=== PATIENT | male | born 1985 | race American Indian/Alaskan Native ===

== ENCOUNTER 2021-08-28 11:51 | Emergency (ER) | payer SELFPAY ==
--- NOTE | 2021-08-28 13:38 | Emergency Department Report ---
Abscess Boil HPI - HPI Chief Complaint: Skin/Abscess/Foreign Body Stated Complaint: CYST LOWER RT ADB/PELVIC Time Seen by Provider: 08/28/21 13:29 Duration: >1 Week Location: Other Severity: Moderate History: Yes Pain, No Fever, No Purulent Drainage, No Numbness, No Foreign Body, No Previous History, No Insect Bite HPI: Patient is a 36-year-old male who comes in with an abscess just at the top of his mons pubis. Denies fever or chills. Denies having had these before. Home Medications: Previous Rx's Medication Instructions Recorded Last Taken Type cephALEXin [Keflex] 500 mg PO Q12HR #20 cap 08/28/21 Unknown Rx Allergies/Adverse Reactions: Allergies Allergy/AdvReac Type Severity Reaction Status Date / Time No Known Allergies Allergy Verified 08/28/21 15:12 ED Review of Systems ROS: Stated complaint: CYST LOWER RT ADB/PELVIC Other details as noted in HPI Comment: All other systems reviewed and negative ED Past Medical Hx - Past Medical History Previous Medical History?: Yes Additional medical history: Cerebral palsy - Family History Family history: no significant - Social History Smoking Status: Never Smoker Substance Use Type: None - Medications Home Medications: Home Medications Medication Instructions Recorded Confirmed Last Taken Type cephALEXin [Keflex] 500 mg PO Q12HR #20 cap 08/28/21 Unknown Rx ED Abscess Boil Physical Exam - Exam General: Vital signs noted. No distress. Alert and acting appropriately. Size: 2 cm Exam: Yes Tenderness, Yes Normal Neurologic Exam, Yes Normal Circulation, No Fluctuance, No Surrounding Cellulites/Erythema, No Lymphangitis, No Crepitation, No Heart Murmur I & D Note - I & D Note I & D Note: Area anesthetized with 4 cc of lidocaine. Area cleaned and draped. 1 cm incision with excision of cyst wall. Purulent drainage obtained. Wound clean. Dressing applied ED Course Vital Signs 08/28/21 13:13 Temperature 97.6 F Pulse Rate 71 Respiratory 20 Rate Blood Pressure 129/76 [Right] O2 Sat by Pulse 99 Oximetry Critical care attestation.: If time is entered above; I have spent that time in minutes in the direct care of this critically ill patient, excluding procedure time. ED Medical Decision Making - Medical Decision Making Vital Signs 08/28/21 13:13 Temperature 97.6 F Pulse Rate 71 Respiratory 20 Rate Blood Pressure 129/76 [Right] O2 Sat by Pulse 99 Oximetry I&D performed. Patient tolerated well. Medicated for pain. Patient given a gram of IM Rocephin. He will discharge home on Keflex. Patient educated on wound care. Patient discharged home with discharge plan of care including diet, activity, medications and follow-up. He verbalizes understanding of discharge plan. - Differential Diagnosis Simple abscess ED Disposition Clinical Impression: Abscess Disposition: 01 HOME / SELF CARE / HOMELESS Is pt being admited?: No Does the pt Need Aspirin: No Condition: Stable Instructions: Skin Abscess Additional Instructions: Continue to soak in Epson salts. Warm baths with Epson salts will help with the wound to drain. Now that it is open I want it to drain. Motrin or Tylenol for pain. Take antibiotics until gone. Follow-up with PCP next week to make sure it is healing. I have given you referral below if you should need it. Prescriptions: cephALEXin [Keflex] 500 mg PO Q12HR #20 cap Referrals: DOMONIQUE HERNANDEZ MD [Primary Care Provider] - 3-5 Days Time of Disposition: 15:31
[2021-08-28] MEDS ORDERED: HYDROcodone/ACETAMINOPHEN 5-325 MG TAB PO SCH (15:30)
[2021-08-28] MEDS ORDERED: SODIUM CHLORIDE 0.9% IRR 500 ML BOTTLE IR SCH (15:30)
[2021-08-28] MEDS ORDERED: LIDOCAINE (1%) 10 MG/1 ML VIAL 20 ML MDV INFILTRATI SCH (15:30)
[2021-08-28] MEDS ORDERED: LIDOCAINE-MPF (1%) 10 MG/1 ML VIAL 5 ML INFILTRATI ONE (15:32)
[2021-08-28 17:38] VITALS: BP 133/75
== END 2021-08-28 17:42 | disposition home or self-care (01) ==
LOC: ED 11:51
DX: L02.214 Cutaneous abscess of groin (principal); Z98.890 Other specified postprocedural states; Z79.899 Other long term (current) drug therapy
CPT/HCPCS: 10060; 96372; 99282; J0696; J3490